=== PATIENT | male | born 1985 | race Caucasian/White ===

== ENCOUNTER 2021-10-08 10:06 | Inpatient (IN) | payer OTHER ==
[2021-10-08 10:20] VITALS: BMI 26.9
[2021-10-08] MEDS ORDERED: LOPERAMIDE HCL 2 MG CAPSULE PO PRN (11:41)
[2021-10-08] MEDS ORDERED: MAGNESIUM HYDROX 2400MG/30ML ORAL SUSPENSION 30 ML CUP PO PRN (11:41)
[2021-10-08] MEDS ORDERED: IBUPROFEN 400 MG TABLET (FP) PO PRN (11:41)
[2021-10-08] MEDS ORDERED: NICOTINE 10 MG CARTRIDGE (INHALER) IH PRN (11:41)
[2021-10-08] MEDS ORDERED: NALOXONE (NARCAN) HCL 4 MG/0.1 ML SPRAY NS PRN (11:41)
[2021-10-08] MEDS ORDERED: MAGNESIUM CITRATE 300 ML BOTTLE PO PRN (11:41)
[2021-10-08] MEDS ORDERED: methaDONE HCL 10 MG TABLET (FOR DETOX USE ONLY) PO ONE (11:41)
[2021-10-08] MEDS ORDERED: BISMUTH SUBSALICYLATE 262 MG/15 ML BTL PO PRN (11:41)
[2021-10-08] MEDS ORDERED: cloNIDine HCL 0.1 MG TABLET PO PRN (11:41)
[2021-10-08] MEDS ORDERED: ACETAMINOPHEN 325 MG TABLET (FP) PO PRN ×2 (11:41)
[2021-10-08] MEDS ORDERED: MENTHOL/PHENOL 1 EACH UD MM PRN (11:41)
[2021-10-08] MEDS ORDERED: MAG HYDROX/AL HYDROX/SIMETH 30 ML UNIT-DOSE CUP PO PRN (11:41)
[2021-10-08] MEDS: ONDANSETRON *ODT* 4 MG TABLET SL PRN ×2 (13:24→22:55)
[2021-10-08] MEDS: hydrOXYzine PAMOATE 25 MG CAPSULE (FP) PO SCH ×3 (13:56→22:18)
[2021-10-08 17:42] LABS: CALCIUM 9.1 mg/dL (8.5-10.1)
[2021-10-08 17:43] LABS: ALBUMIN 4.1 g/dl (3.4-5.0); BLOOD UREA NITROGEN 9.6 mg/dL (7-18)
[2021-10-08 17:46] LABS: CREATININE 0.9 mg/dL (0.55-1.3)
[2021-10-08 17:48] LABS: BILIRUBIN,TOTAL 0.6 mg/dL (0.2-1); TOT PROT 7.8 g/dl (6.4-8.2)
[2021-10-08 18:01] LABS: HEMATOCRIT 43.6 % (35.4-49); HEMOGLOBIN 14.9 GM/dL (11.7-16.9); MCH 29.8 pg (25.7-33.7); MCHC 34.1 g/dl (32.0-35.9); MEAN CELL VOLUME 87.2 fl (80-96); MEAN PLT VOLUME 7.4 fl (7.5-11.1); PLATELET COUNT 289 10^3/uL (134-434); RBC 4.99 M/mm3 (4.00-5.60); RDW 14.1 % (11.9-15.9); WHITE BLOOD COUNT 5.1 K/mm3 (4.0-10.0)
[2021-10-08] MEDS: diazePAM 5 MG TABLET PO SCH ×2 (18:07→22:18)
[2021-10-08] MEDS: MELATONIN 5 MG TABLETS PO SCH (22:18)
[2021-10-08] MEDS: THIAMINE HCL 100 MG TABLET (FP) PO SCH (22:18)
[2021-10-09] MEDS: hydrOXYzine PAMOATE 25 MG CAPSULE (FP) PO SCH ×5 (06:34→22:05)
[2021-10-09] MEDS: diazePAM 5 MG TABLET PO SCH ×4 (06:34→22:04)
[2021-10-09] MEDS ORDERED: methaDONE HCL 10 MG TABLET (FOR DETOX USE ONLY) ONE (09:23)
[2021-10-09] MEDS: PRENATAL VITAMINS W/ FOLIC ACID TABLET (FP) PO SCH (10:17)
[2021-10-09] MEDS: METHOCARBAMOL 500 MG TABLET PO PRN (20:10)
[2021-10-09] MEDS: THIAMINE HCL 100 MG TABLET (FP) PO SCH (22:04)
[2021-10-09] MEDS: SUVOREXANT 10 MG TABLET PO PRN (22:05)
[2021-10-09] MEDS: MELATONIN 5 MG TABLETS PO SCH (22:05)
[2021-10-10] MEDS: diazePAM 5 MG TABLET PO SCH ×3 (05:11→22:23)
[2021-10-10] MEDS: hydrOXYzine PAMOATE 25 MG CAPSULE (FP) PO SCH ×5 (05:11→22:23)
[2021-10-10] MEDS ORDERED: IBUPROFEN 600 MG TABLET (FP) PO PRN (09:43)
[2021-10-10] MEDS ORDERED: methaDONE HCL 10 MG TABLET (FOR DETOX USE ONLY) PO ONE (10:00)
[2021-10-10] MEDS: PRENATAL VITAMINS W/ FOLIC ACID TABLET (FP) PO SCH (10:26)
[2021-10-10] MEDS: diazePAM 5 MG TABLET PO PRN (10:26)
[2021-10-10] MEDS: LIDOCAINE 5% TOPICAL PATCH TP SCH (10:27)
[2021-10-10] MEDS: METHOCARBAMOL 500 MG TABLET PO PRN (13:52)
[2021-10-10] MEDS: THIAMINE HCL 100 MG TABLET (FP) PO SCH (22:23)
[2021-10-10] MEDS: MELATONIN 5 MG TABLETS PO SCH (22:23)
[2021-10-10] MEDS: LIDOCAINE PATCH REMOVAL MC SCH (22:58)
[2021-10-11] MEDS: hydrOXYzine PAMOATE 25 MG CAPSULE (FP) PO SCH ×5 (06:14→23:16)
[2021-10-11] MEDS: diazePAM 5 MG TABLET PO SCH ×2 (06:15→18:33)
[2021-10-11] MEDS ORDERED: methaDONE HCL 10 MG TABLET (FOR DETOX USE ONLY) PO ONE (09:45)
[2021-10-11] MEDS: PRENATAL VITAMINS W/ FOLIC ACID TABLET (FP) PO SCH (10:41)
[2021-10-11] MEDS: LIDOCAINE 5% TOPICAL PATCH TP SCH (10:42)
[2021-10-11] MEDS: METHOCARBAMOL 500 MG TABLET PO PRN (10:42)
[2021-10-11] MEDS: diazePAM 5 MG TABLET PO PRN (10:44)
[2021-10-11] MEDS: THIAMINE HCL 100 MG TABLET (FP) PO SCH (23:16)
[2021-10-11] MEDS: MELATONIN 5 MG TABLETS PO SCH (23:16)
[2021-10-11] MEDS: SUVOREXANT 10 MG TABLET PO PRN (23:17)
[2021-10-11] MEDS: LIDOCAINE PATCH REMOVAL MC SCH (23:19)
[2021-10-12] MEDS: METHOCARBAMOL 500 MG TABLET PO PRN (00:56)
[2021-10-12] MEDS ORDERED: diazePAM 5 MG TABLET PO ONE (06:00)
[2021-10-12] MEDS: hydrOXYzine PAMOATE 25 MG CAPSULE (FP) PO SCH ×2 (07:00→10:33)
[2021-10-12] MEDS ORDERED: methaDONE HCL 10 MG TABLET (FOR DETOX USE ONLY) PO ONE (10:00)
[2021-10-12] MEDS: PRENATAL VITAMINS W/ FOLIC ACID TABLET (FP) PO SCH (10:33)
[2021-10-12] MEDS: LIDOCAINE 5% TOPICAL PATCH TP SCH (10:35)
[2021-10-12 13:22] VITALS: BP 112/60; PULSE 89; TEMP 98
== END 2021-10-12 13:00 | disposition other institution (70) | DRG 773 ==
LOC: YASAS 10:06 → Y6N 12:27
PROVIDERS: ADMIT Allergy & Immunology; ATTEND Allergy & Immunology
PROC: HZ2ZZZZ Detoxification Services for Substance Abuse Treatment (ICD-10-PCS; principal; 2021-10-08)
DX: F10.230 Alcohol dependence with withdrawal, uncomplicated (principal); F11.20 Opioid dependence, uncomplicated; F14.20 Cocaine dependence, uncomplicated; F12.20 Cannabis dependence, uncomplicated; F17.210 Nicotine dependence, cigarettes, uncomplicated; F19.282 Other psychoactive substance dependence with psychoactive substance-induced sleep disorder; M54.50 Low back pain, unspecified; G89.29 Other chronic pain
CPT/HCPCS: 36415; 71046-TC-FY; 80053; 85027; 86780; 87811; 93005; 93010; C9803-CS; J0735; Q0162; U0003; U0005

== ENCOUNTER 2021-10-12 13:09 | Inpatient (IN) | payer OTHER ==
[2021-10-12 13:21] VITALS: BP 114/75; PULSE 91; TEMP 97.3
[2021-10-12] MEDS ORDERED: MAG HYDROX/AL HYDROX/SIMETH 30 ML UNIT-DOSE CUP PO PRN (14:48)
[2021-10-12] MEDS ORDERED: LOPERAMIDE HCL 2 MG CAPSULE PO PRN (14:48)
[2021-10-12] MEDS ORDERED: MAGNESIUM HYDROX 2400MG/30ML ORAL SUSPENSION 30 ML CUP PO PRN (14:48)
[2021-10-12] MEDS ORDERED: MAGNESIUM CITRATE 300 ML BOTTLE PO PRN (14:48)
[2021-10-12] MEDS ORDERED: ACETAMINOPHEN 325 MG TABLET (FP) PO PRN (14:48)
[2021-10-12] MEDS ORDERED: IBUPROFEN 400 MG TABLET (FP) PO PRN (14:48)
[2021-10-12] MEDS ORDERED: guaiFENesin 200 MG/10 ML 10 ML UNIT-DOSE CUPS PO PRN (14:48)
[2021-10-12] MEDS ORDERED: hydrOXYzine PAMOATE 25 MG CAPSULE (FP) PO PRN (14:48)
[2021-10-12] MEDS ORDERED: MENTHOL/PHENOL 1 EACH UD MM PRN (14:48)
[2021-10-12] MEDS ORDERED: NICOTINE 10 MG CARTRIDGE (INHALER) IH PRN (14:48)
[2021-10-12] MEDS ORDERED: MELATONIN 5 MG TABLETS PO SCH (22:00)
[2021-10-12] MEDS ORDERED: LIDOCAINE PATCH REMOVAL MC SCH (22:00)
[2021-10-12] MEDS ORDERED: THIAMINE HCL 100 MG TABLET (FP) PO SCH (22:00)
[2021-10-13] MEDS ORDERED: LIDOCAINE 5% TOPICAL PATCH TP SCH (10:00)
[2021-10-13] MEDS ORDERED: PRENATAL VITAMINS W/ FOLIC ACID TABLET (FP) PO SCH (10:00)
== END 2021-10-12 16:20 | disposition left against medical advice (07) | DRG 770 ==
LOC: YASAS 13:09 → Y3E 13:10
PROVIDERS: ADMIT Allergy & Immunology; ATTEND Allergy & Immunology
PROC: HZ42ZZZ Group Counseling for Substance Abuse Treatment, Cognitive-Behavioral (ICD-10-PCS; principal; 2021-10-12)
DX: F11.20 Opioid dependence, uncomplicated (principal); F14.20 Cocaine dependence, uncomplicated; F12.20 Cannabis dependence, uncomplicated; F17.210 Nicotine dependence, cigarettes, uncomplicated; F19.282 Other psychoactive substance dependence with psychoactive substance-induced sleep disorder; M54.50 Low back pain, unspecified; G89.29 Other chronic pain

== ENCOUNTER 2024-10-29 09:36 | Inpatient (IN) | payer OTHER ==
[2024-10-29 10:06] VITALS: BMI 25.4
[2024-10-29] MEDS ORDERED: guaiFENesin 600 MG TABLET.ER (FP) PO PRN (10:15)
[2024-10-29] MEDS ORDERED: ONDANSETRON *ODT* 4 MG TABLET SL PRN (10:15)
[2024-10-29] MEDS ORDERED: BISMUTH SUBSALICYLATE 524 MG/30 ML PO PRN (10:15)
[2024-10-29] MEDS ORDERED: BENZOCAINE/MENTHOL (CHLORASEPTIC ) LOZENGE MM PRN (10:15)
[2024-10-29] MEDS ORDERED: P-EPHED 60MG/TRIPROLIDI 2.5MG TABLET PO PRN (10:15)
[2024-10-29] MEDS ORDERED: IBUPROFEN 400 MG TABLET (FP) PO PRN (10:15)
[2024-10-29] MEDS ORDERED: LOPERAMIDE HCL 2 MG CAPSULE PO PRN (10:15)
[2024-10-29] MEDS ORDERED: NALOXONE (NARCAN) HCL 4 MG/0.1 ML SPRAY NS PRN (10:15)
[2024-10-29] MEDS ORDERED: NICOTINE POLACRILEX 2 MG GUM BUC PRN (10:15)
[2024-10-29] MEDS ORDERED: DICYCLOMINE HCL 10 MG CAPSULE PO PRN (10:15)
[2024-10-29] MEDS ORDERED: BENZONATATE 200 MG CAPSULE PO PRN (10:15)
[2024-10-29] MEDS ORDERED: POLYETHYLENE GLYCOL (HEALTHYLAX) 3350 17 GM PACKET PO PRN (10:15)
[2024-10-29] MEDS ORDERED: MAGNESIUM HYDROX 2400MG/30ML ORAL SUSPENSION 30 ML CUP PO PRN (10:15)
[2024-10-29] MEDS ORDERED: ACETAMINOPHEN 325 MG TABLET (FP) PO PRN (10:15)
[2024-10-29] MEDS ORDERED: MAG HYDROX/AL HYDROX/SIMETH 30 ML UNIT-DOSE CUP PO PRN (10:15)
[2024-10-29] MEDS ORDERED: diazePAM 5 MG TABLET ONE (10:44)
[2024-10-29] MEDS ORDERED: methaDONE HCL 10 MG TABLET (FOR DETOX USE ONLY) ONE (10:45)
[2024-10-29] MEDS: methaDONE HCL 10 MG TABLET PO ONE (10:52)
[2024-10-29] MEDS: diazePAM 5 MG TABLET PO SCH (10:52)
[2024-10-29] MEDS ORDERED: cloNIDine HCL 0.1 MG TABLET ONE (10:58)
[2024-10-29] MEDS: cloNIDine HCL 0.1 MG TABLET PO PRN (10:59)
[2024-10-29] MEDS ORDERED: METHOCARBAMOL 500 MG TABLET ONE (11:10)
[2024-10-29] MEDS: METHOCARBAMOL 500 MG TABLET PO PRN (11:11)
[2024-10-29] MEDS: ASPIRIN 325 MG ENTERIC COATED TABLET (FP) PO SCH (17:40)
[2024-10-29] MEDS: THIAMINE 100 MG TABLET PO SCH (22:36)
[2024-10-29] MEDS: MELATONIN 5 MG TABLETS PO SCH (22:36)
[2024-10-29] MEDS: BUPRENORPHINE/NALOXONE 0.5 MG/0.125 MG FILM SL SCH (22:39)
[2024-10-30] MEDS: PRENATAL VITAMINS W/ FOLIC ACID TABLET (FP) PO SCH (09:24)
[2024-10-30] MEDS: BUPRENORPHINE/NALOXONE 0.5 MG/0.125 MG FILM SL SCH (09:24)
[2024-10-30] MEDS ORDERED: methaDONE HCL 40 MG DISPERSABLE TABLET PO ONE ×2 (10:00)
[2024-10-30] MEDS: BUPRENORPHINE/NALOXONE 0.5 MG/0.125 MG FILM SL ONE (15:35)
[2024-10-30] MEDS: QUEtiapine FUMARATE 50 MG TABLET PO SCH (22:11)
[2024-10-31] MEDS: diazePAM 5 MG TABLET PO SCH (05:50)
[2024-10-31] MEDS: BUPRENORPHINE/NALOXONE 2 MG/0.5 MG FILM PACKET SL SCH (09:27)
[2024-10-31] MEDS: methaDONE HCL 10 MG TABLET (FOR DETOX USE ONLY) PO ONE (09:27)
[2024-10-31] MEDS ORDERED: methaDONE HCL 40 MG DISPERSABLE TABLET PO ONE (10:00)
[2024-10-31] MEDS: LIDOCAINE 4% PATCH TP SCH (14:13)
[2024-10-31] MEDS: QUEtiapine FUMARATE 100 MG TABLET (FP) PO SCH (22:10)
[2024-10-31] MEDS: LIDOCAINE PATCH REMOVAL MC SCH (23:20)
[2024-11-01] MEDS: diazePAM 5 MG TABLET PO SCH (05:32)
[2024-11-01] MEDS ORDERED: methaDONE HCL 40 MG DISPERSABLE TABLET PO ONE ×2 (10:00)
[2024-11-01] MEDS: diazePAM 5 MG TABLET PO PRN (10:03)
[2024-11-01] MEDS: BUPRENORPHINE/NALOXONE 4 MG/1 MG FILM PACKET SL SCH (10:07)
[2024-11-01] MEDS: QUEtiapine FUMARATE 50 MG TABLET PO SCH (21:52)
[2024-11-01] MEDS ORDERED: QUEtiapine FUMARATE 100 MG TABLET (FP) PO SCH (22:00)
[2024-11-02] MEDS: diazePAM 5 MG TABLET PO ONE (05:55)
[2024-11-02] MEDS ORDERED: methaDONE HCL 40 MG DISPERSABLE TABLET PO ONE (10:00)
[2024-11-02] MEDS: methaDONE HCL 10 MG TABLET (FOR DETOX USE ONLY) PO ONE (10:26)
[2024-11-02] MEDS: BUPRENORPHINE/NALOXONE 8 MG/2 MG FILM PACKET SL SCH (10:26)
[2024-11-02] MEDS: NICOTINE POLACRILEX 2 MG LOZENGE BC PRN (10:45)
[2024-11-02 11:08] LABS: HEMATOCRIT 38.1 % (40.1-51.0); HEMOGLOBIN 12.2 g/dL (13.7-17.5); MEAN CELL VOLUME 85.2 fl (79.0-92.2); MEAN PLT VOLUME 9.2 fl (9.4-12.4); PLATELET COUNT 266 x10^3/uL (163-337); RDW 13.2 % (12.1-15.9)
[2024-11-02 11:41] LABS: ALBUMIN 2.8 g/dl (3.4-5.0); BLOOD UREA NITROGEN 11.5 mg/dL (7-18); CALCIUM 9.2 mg/dL (8.5-10.1)
[2024-11-02 11:44] LABS: CREATININE 0.7 mg/dL (0.55-1.3)
[2024-11-02 11:45] LABS: BILIRUBIN,TOTAL 0.2 mg/dL (0.2-1); TOT PROT 6.3 g/dl (6.4-8.2)
[2024-11-02] MEDS: hydrOXYzine PAMOATE 25 MG CAPSULE (FP) PO PRN (17:15)
[2024-11-02] MEDS: IBUPROFEN 600 MG TABLET (FP) PO PRN (17:15)
[2024-11-03 06:45] VITALS: RESP 16
[2024-11-03] MEDS: BUPRENORPHINE/NALOXONE 8 MG/2 MG FILM PACKET SL ONE (09:24)
[2024-11-03] MEDS ORDERED: methaDONE HCL 40 MG DISPERSABLE TABLET PO ONE (10:00)
[2024-11-03] MEDS ORDERED: BUPRENORPHINE/NALOXONE 8 MG/2 MG FILM PACKET SL SCH (10:00)
[2024-11-03 12:30] VITALS: BP 135/92; PULSE 108; TEMP 98
== END 2024-11-03 09:45 | disposition home or self-care (01) | DRG 773 ==
LOC: YASAS 09:36 → Y6N 12:12
PROVIDERS: ADMIT Allergy & Immunology; ATTEND Allergy & Immunology
PROC: HZ2ZZZZ Detoxification Services for Substance Abuse Treatment (ICD-10-PCS; principal; 2024-10-29)
DX: F11.23 Opioid dependence with withdrawal (principal); F13.20 Sedative, hypnotic or anxiolytic dependence, uncomplicated; F10.20 Alcohol dependence, uncomplicated; F14.20 Cocaine dependence, uncomplicated; F12.20 Cannabis dependence, uncomplicated; F17.210 Nicotine dependence, cigarettes, uncomplicated; F43.10 Post-traumatic stress disorder, unspecified; F19.282 Other psychoactive substance dependence with psychoactive substance-induced sleep disorder; M54.50 Low back pain, unspecified; G89.29 Other chronic pain; Z86.718 Personal history of other venous thrombosis and embolism
CPT/HCPCS: 36415; 71045-TC-FY; 72100-TC-FY; 80053; 80305; 80307; 85027; 86780; 93005; 93010